=== PATIENT | female | born 1990 | race Caucasian/White ===

== ENCOUNTER → 2018-12-23 | Outpatient (CLI) | payer BC ==
[~2018-12-23] MED LIST: ALPR1TAB2 PO; DICL75TA PO; NORE1TAB PO
[2018-12-23] MEDS: GADOBUTROL 7.5 MMOL/7.5 ML VIAL IV ONE (14:27)
--- NOTE | 2018-12-23 14:54 | RAD ---
EXAM: Brain MRI with and without contrast. HISTORY: Headaches. Left vestibular schwannoma resection. TECHNIQUE: Multiplanar, multisequence magnetic resonance imaging of the brain was performed prior to and following the administration of 7 cc Gadavist intravenous contrast. COMPARISON: 07/13/2018 FINDINGS: There is no restricted diffusion to suggest acute or subacute infarction. There is no mass effect or midline shift. There is no hydrocephalus. No suspicious white matter lesion is seen. There are findings consistent with a prior left retrosigmoid craniotomy. There is a heterogeneous enhancing lesion within the left cerebellopontine angle which extends into the left internal auditory canal. This measures 10 mm anteroposteriorly by 13 mm transversely by 9 mm craniocaudally. The abnormal enhancement does not extend to the basal turn of the cochlea. The extracanalicular component measures 9 x 9 x 5 mm. This lesion abuts the proximal left trigeminal nerve complex and partially effaces the traversing left vestibulocochlear and facial nerves. The orbits are unremarkable. There are small maxillary sinus mucous retention cysts. There is a tiny amount of fluid within the residual left mastoid air cells. There are normal flow voids within the cerebral vessels. IMPRESSION: 1. Stable enhancing left cerebellopontine angle mass with slight extension into the internal auditory canal, consistent with a history of a left vestibular schwannoma. There are left retrosigmoid craniotomy changes due to prior lesion resection or partial resection. The size of this lesion is not significantly changed compared to the most recent comparison study, allowing for differences in imaging technique. 2. No acute intracranial finding. Electronically signed by: Kayley Bain MD (12/23/2018 2:51 PM) [facility]
== END | disposition home or self-care (01) ==
LOC: MRI 12:46
PROVIDERS: ATTEND Radiology Radiation Oncology
DX: J34.1 Cyst and mucocele of nose and nasal sinus (principal); D36.10 Benign neoplasm of peripheral nerves and autonomic nervous system, unspecified
CPT/HCPCS: 70553; A9585

== ENCOUNTER 2019-04-02 14:33 | Emergency (ER) | payer BC ==
[~2019-04-02] VITALS: Ht 160 cm; Wt 77.1 kg
[2019-04-02 14:37] VITALS: BP 117/62
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
== END 2019-04-02 15:23 | disposition left against medical advice (07) ==
LOC: ER 14:33
DX: S20.02XA Contusion of left breast, initial encounter (principal); S40.022A Contusion of left upper arm, initial encounter; R51 Headache; R42 Dizziness and giddiness; F41.9 Anxiety disorder, unspecified; F17.200 Nicotine dependence, unspecified, uncomplicated; G89.29 Other chronic pain; V43.53XA Car driver injured in collision with pick-up truck in traffic accident, initial encounter; Y93.89 Activity, other specified; Y92.410 Unspecified street and highway as the place of occurrence of the external cause; Y99.8 Other external cause status
CPT/HCPCS: 99281

== ENCOUNTER → 2019-05-19 | Outpatient (CLI) | payer BC ==
[~2019-05-19] MED LIST changes: +ESCITALOPRAM OX10 MG PO; +GABA300C18 PO; +GADOTERATE 7.5 MMOL/15ML VIAL. IVP ONE; +HYDR-2769 PO; +HYDR25TA PO; +METH-37 PO
--- NOTE | 2019-05-19 15:57 | KCIC ---
BRAIN WO/W CONTRAST History: Acoustic neuroma. History of left-sided resection and radiation. Headaches chronic. Technique: Multiplanar, multi sequential pre and postcontrast MR imaging was performed of the brain. Contrast: 15 mL Dotarem Comparison: December 23, 2018. CT March 29, 2019 Findings: No acute infarct. No intracranial hemorrhage. No mass effect. No hydrocephalus. Enhancing mass within the left cerebellopontine angle extending into the internal auditory canal measures 0.7 cm anterior posterior by 1.0 cm transverse by 0.8 cm craniocaudal (compared to 0.8 cm anterior posterior by 1.2 cm transverse by 0.9 cm canal caudal). There is unchanged mass effect on the left trigeminal nerve root entry zone. Imaged orbits are unremarkable. Small left posterior maxillary sinus mucous retention cyst. Postoperative changes left partial mastoidectomy. Mastoid air cells are clear. Impression: 1. Slightly decreased left vestibular schwannoma. Unchanged mass effect on the left trigeminal nerve root entry zone. Electronically signed by: Henri Addison DO (05/19/2019 3:54 PM) [id number]
== END | disposition home or self-care (01) ==
LOC: KCIC MRI 14:21
PROVIDERS: ATTEND Radiology Radiation Oncology
DX: D36.10 Benign neoplasm of peripheral nerves and autonomic nervous system, unspecified (principal); G93.9 Disorder of brain, unspecified; J34.1 Cyst and mucocele of nose and nasal sinus; R22.0 Localized swelling, mass and lump, head
CPT/HCPCS: 70553; A9575

== ENCOUNTER → 2019-05-25 | Outpatient (CLI) | payer BC ==
[~2019-05-25] MED LIST changes: -GADOTERATE 7.5 MMOL/15ML VIAL. IVP ONE
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
== END | disposition home or self-care (01) ==
LOC: KCIC US 13:30
PROVIDERS: ATTEND Nurse Practitioner Gerontology
DX: N64.89 Other specified disorders of breast (principal)
CPT/HCPCS: 76641

== ENCOUNTER → 2019-11-26 | Outpatient (CLI) | payer BC ==
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
== END | disposition home or self-care (01) ==
LOC: KCIC US 12:28
PROVIDERS: ATTEND Nurse Practitioner Gerontology
DX: N63.22 Unspecified lump in the left breast, upper inner quadrant (principal)
CPT/HCPCS: 76641

== ENCOUNTER → 2020-04-12 | Outpatient (CLI) | payer BC ==
[~2020-04-12] MED LIST changes: +FREM225S SQ; +GADOTERATE 5 MMOL/10ML VIAL. IVP ONE
--- NOTE | 2020-04-12 09:38 | KCIC ---
EXAMINATION: Magnetic resonance imaging (MRI) of the brain and brainstem with and without contrast with dedicated views of the Temporal Bones and Internal Auditory Canals (IACs) DATE: 04/12/2020 8:00 AM INDICATION: LEFT ACOUSTIC NEUROMA. Worsening migraines. Surgery for Left acoustic neuroma TECHNIQUE: Multiplanar, multisequence MR images were performed with and without contrast. Multiple T1 + T2 weighted images were obtained through temporal bone and IACs. 3D fiesta T2 weighted images were also obtained and reconstructed in coronal and sagittal planes. 15 cc of Dotarem contrast was given intravenously. COMPARISON: 05/19/2019. FINDINGS: Left cerebellopontine angle extra-axial enhancing mass extending into the IAC measures 1.0 x 0.6 x 0.8 cm (TV by AP by CC), which is unchanged from the prior exam when measured in the same fashion. 7 mm apical fluid cap. Unchanged mass effect on the root entry zone of the left trigeminal nerve. The cochlear forms are normal with normal fluid signal within cochlea. The semicircular canals are normal. No acute infarction. No acute or chronic hemorrhage. The ventricles are normal in size and position without hydrocephalus. The scalp and calvarium are normal. The pituitary and sella are normal. No Chiari malformation. The visualized upper cervical spine is normal. The visualized portions of the orbits and mastoids are normal. Tiny maxillary sinus mucus retention cysts. Normal flow voids in the distal internal carotid and basilar arteries indicate patency. IMPRESSION: Stable left vestibular schwannoma. Electronically signed by: Trace Warren MD (04/12/2020 9:35 AM) [id number]
== END | disposition home or self-care (01) ==
LOC: KCIC MRI 07:47
PROVIDERS: ATTEND Psychiatry & Neurology Neurology with Special Qualifications in Child Neurology
DX: D36.10 Benign neoplasm of peripheral nerves and autonomic nervous system, unspecified (principal); J34.1 Cyst and mucocele of nose and nasal sinus
CPT/HCPCS: 70553; A9575

== ENCOUNTER 2020-12-13 15:08 | Emergency (ER) | payer BC ==
[~2020-12-13] VITALS: Ht 160 cm; Wt 82.7 kg
[~2020-12-13 15:08] MED LIST changes: -GADOTERATE 5 MMOL/10ML VIAL. IVP ONE
[2020-12-13] MEDS ORDERED: IV NORMAL SALINE 1000ML BAG 1,000 ML IV ONE (16:15)
[2020-12-13] MEDS ORDERED: diphenhydrAMINE 50 MG/ML VIAL IVP ONE (16:15)
[2020-12-13] MEDS ORDERED: methylPREDNISolone SOD SUCC PF 125 MG/2 ML VIAL. IV ONE (16:15)
[2020-12-13] MEDS ORDERED: KETOROLAC 30 MG/ML VIAL. IVP ONE (16:15)
[2020-12-13] MEDS ORDERED: PROCHLORPERAZINE 10 MG/2 ML VIAL. IV ONE (16:15)
[2020-12-13 16:43] LABS: BASO # 0.1 x10^3/uL (0.0-0.2); BASO % 1 % (0-3); EOS % 0 % (0-3); HEMATOCRIT 47.1 % (36.0-47.0); LYMPH # 0.7 x10^3/uL (1.0-4.8); LYMPH % 8 % (24-48); MEAN CORPUSCULAR HEMOGLOBIN 31 pg (25-35); MEAN CORPUSCULAR HGB CONC 34 g/dL (31-37); MEAN CORPUSCULAR VOLUME 91 fL (79-100); MONO # 0.2 x10^3/uL (0.0-1.1); MONO % 2 % (0-9); NEUT # 7.6 x10^3/uL (1.8-7.7); NEUT % 89 % (31-73); PLATELET COUNT 303 x10^3/uL (140-400); RED CELL DISTRIBUTION WIDTH 12.4 % (11.5-14.5); WHITE BLOOD COUNT 8.5 x10^3/uL (4.0-11.0)
[2020-12-13 16:53] LABS: BILIRUBIN,URINE NEGATIVE (NEG); CLARITY,URINE CLEAR; COLOR,URINE YELLOW; NITRITE,URINE NEGATIVE (NEG); PH,URINE 7.5 (<5.0-8.0); PROTEIN,URINE NEGATIVE (NEG-TRACE)
[2020-12-13 16:53] LABS: CALCIUM 8.5 mg/dL (8.5-10.1); CREATININE 1.3 mg/dL (0.6-1.0); GFR 47.8; POTASSIUM 4.1 mmol/L (3.5-5.1)
[2020-12-13 17:00] LABS: BACTERIA,URINE 0 /HPF (0-FEW); BARBITURATES NEG (NEG); BENZODIAZEPINES POS (NEG); CANNABINOIDS NEG (NEG); COCAINE NEG (NEG); METHADONE NEG (NEG); OPIATES NEG (NEG); PHENCYCLIDINE NEG (NEG); RBC,URINE OCC /HPF (0-2); WBC,URINE OCC /HPF (0-4)
[2020-12-13 17:03] LABS: % LYMPHS 12 % (24-48); % MONOS 2 % (0-10); % SEGS 86 % (35-66); ALBUMIN 3.5 g/dL (3.4-5.0); MAGNESIUM 1.9 mg/dL (1.8-2.4); PLT ESTIMATE ADEQUATE (ADEQUATE); TOTAL BILIRUBIN 0.3 mg/dL (0.2-1.0); TOTAL PROTEIN 6.9 g/dL (6.4-8.2)
[2020-12-13 17:04] LABS: AMPHETAMINE/METHAMPHETAMINE NEG (NEG)
--- NOTE | 2020-12-13 19:04 | PHYS DOC ---
Past Medical History Past Medical History: Anxiety, Migraines, Other Additional Past Medical Histor: CHRONIC PAIN,NEUROPATHY (MARLENE NULL APRN) Past Surgical History: Other Additional Past Surgical Histo: BENIGN BRAIN TUMOR REMOVED/RADIATION,CSF LEAK REPAIRED (MARLENE NULL APRN) Smoking Status: Current Every Day Smoker Alcohol Use: Rarely Drug Use: None (MARLENE NULL APRN) General Adult EDM: Chief Complaint: HEADACHE HPI: HPI: Patient is a 30 year old female with history of anxiety, acoustic neuroma, migraine headaches who presents to the ED today complaining of a 10 out of 10 frontal head migraine headache described as throbbing and intermittent, symptoms since November 26, 2020. Also complaining of light sensitivity, denies any nausea vomiting. Patient states she has been seen at 4 different emergency rooms for her symptoms. She was seen at [facility] on Friday and discharged yesterday. She states they did a CAT scan of her head and lab work, she states they did not report any acute findings and she was sent home with a steroid pack and muscle relaxer. She states she would like to be admitted today. She states she has a scheduled MRI on Friday as well as a neurologist appointment next peter pritchett (MARLENE NULL APRN) Review of Systems: Review of Systems: Constitutional: Denies fever or chills. [] Eyes: Denies change in visual acuity. [] HENT: Denies nasal congestion or sore throat. [] Respiratory: Denies cough or shortness of breath. [] Cardiovascular: Denies chest pain or edema. [] GI: Denies abdominal pain, nausea, vomiting, bloody stools or diarrhea. [] : Denies dysuria. [] Musculoskeletal: Denies back pain or joint pain. [] Integument: Denies rash. [] Neurologic: Reports migraine headache, reports photosensitivity, focal weakness or sensory changes. [] Psychiatric: Denies depression or anxiety. [] (MARLENE NULL APRN) Heart Score: Risk Factors: Risk Factors: DM, Current or recent (<one month) smoker, HTN, HLP, family history of CAD, obesity. Risk Scores: Score 0 - 3: 2.5% MACE over next 6 weeks - Discharge Home Score 4 - 6: 20.3% MACE over next 6 weeks - Admit for Clinical Observation Score 7 - 10: 72.7% MACE over next 6 weeks - Early Invasive Strategies (MARLENE NULL [employer]) Current Medications: Current Medications Medications (Trade) Dose Ordered Sig/Maria Isabel Start Time Stop Time Status Last Admin Dose Admin Diphenhydramine HCl (Benadryl) 25 mg 1X ONCE 12/13/20 16:15 12/13/20 16:17 DC 12/13/20 16:58 25 MG Ketorolac Tromethamine (Toradol 30mg Vial) 30 mg 1X ONCE 12/13/20 16:15 12/13/20 16:17 DC 12/13/20 16:57 30 MG Methylprednisolone Sodium Succinate (SOLU-Medrol 125MG VIAL) 125 mg 1X ONCE 12/13/20 16:15 12/13/20 16:17 DC 12/13/20 17:00 125 MG Prochlorperazine Edisylate (Compazine) 10 mg 1X ONCE 12/13/20 16:15 12/13/20 16:17 DC 12/13/20 16:59 10 MG Sodium Chloride 1,000 ml @ 1,000 mls/hr 1X ONCE 12/13/20 16:15 12/13/20 17:14 DC 12/13/20 16:55 1,000 MLS/HR (MARLENE NULL [employer]) Allergies: Allergies: Allergies Coded Allergies Type Severity Reaction Last Updated Verified No Known Drug Allergies 08/12/18 No (MARLENE NULL [employer]) Physical Exam: PE: Constitutional: Well developed, well nourished, no acute distress, non-toxic appearance. [] HENT: Normocephalic, atraumatic, bilateral external ears normal, oropharynx moist, no oral exudates, nose normal. [] Eyes: PERRLA, EOMI, conjunctiva normal, no discharge. [] Neck: Normal range of motion, no tenderness, supple, no stridor. [] Cardiovascular:Heart rate regular rhythm, no murmur [] Lungs & Thorax: Bilateral breath sounds clear to auscultation [] Abdomen: Bowel sounds normal, soft, no tenderness, no masses, no pulsatile masses. [] Skin: Warm, dry, no erythema, no rash. [] Back: No tenderness, no CVA tenderness. [] Extremities: No tenderness, no cyanosis, no clubbing, ROM intact, no edema. [] Neurologic: Alert and oriented X 3, normal motor function, normal sensory function, no focal deficits noted. Cranial nerves II through XII intact Psychologic: Affect normal, judgement normal, mood normal. [] (MARLENE NULL APRN) Current Patient Data: Labs: Laboratory Tests Test 12/13/20 16:25 12/13/20 16:34 12/13/20 16:40 Urine Collection Type Unknown Urine Color Yellow Urine Clarity Clear Urine pH 7.5 (<5.0-8.0) Urine Specific [place] 1.015 (1.000-1.030) Urine Protein Negative mg/dL (NEG-TRACE) Urine Glucose (UA) Negative mg/dL (NEG) Urine Ketones (Stick) Negative mg/dL (NEG) Urine Blood Negative (NEG) Urine Nitrite Negative (NEG) Urine Bilirubin Negative (NEG) Urine Urobilinogen Dipstick 1.0 mg/dL (0.2 mg/dL) Urine Leukocyte Esterase Negative (NEG) Urine RBC Occ /HPF (0-2) Urine WBC Occ /HPF (0-4) Urine Squamous Epithelial Cells Occ /LPF Urine Bacteria 0 /HPF (0-FEW) Urine Opiates Screen Neg (NEG) Urine Methadone Screen Neg (NEG) Urine Barbiturates Neg (NEG) Urine Phencyclidine Screen Neg (NEG) Urine Amphetamine/Methamphetamine Neg (NEG) Urine Benzodiazepines Screen Pos (NEG) Urine Cocaine Screen Neg (NEG) Urine Cannabinoids Screen Neg (NEG) Urine Ethyl Alcohol Neg (NEG) White Blood Count 8.5 x10^3/uL (4.0-11.0) Red Blood Count 5.20 x10^6/uL (3.50-5.40) Hemoglobin 16.0 g/dL (12.0-15.5) H Hematocrit 47.1 % (36.0-47.0) H Mean Corpuscular Volume 91 fL (79-100) Mean Corpuscular Hemoglobin 31 pg (25-35) Mean Corpuscular Hemoglobin Concent 34 g/dL (31-37) Red Cell Distribution Width 12.4 % (11.5-14.5) Platelet Count 303 x10^3/uL (140-400) Neutrophils (%) (Auto) 89 % (31-73) H Lymphocytes (%) (Auto) 8 % (24-48) L Monocytes (%) (Auto) 2 % (0-9) Eosinophils (%) (Auto) 0 % (0-3) Basophils (%) (Auto) 1 % (0-3) Neutrophils # (Auto) 7.6 x10^3/uL (1.8-7.7) Lymphocytes # (Auto) 0.7 x10^3/uL (1.0-4.8) L Monocytes # (Auto) 0.2 x10^3/uL (0.0-1.1) Eosinophils # (Auto) 0.0 x10^3/uL (0.0-0.7) Basophils # (Auto) 0.1 x10^3/uL (0.0-0.2) Segmented Neutrophils % 86 % (35-66) H Lymphocytes % 12 % (24-48) L Monocytes % 2 % (0-10) Platelet Estimate Adequate (ADEQUATE) Sodium Level 139 mmol/L (136-145) Potassium Level 4.1 mmol/L (3.5-5.1) Chloride Level 104 mmol/L (98-107) Carbon Dioxide Level 20 mmol/L (21-32) L Anion Gap 15 (6-14) H Blood Urea Nitrogen 18 mg/dL (7-20) Creatinine 1.3 mg/dL (0.6-1.0) H Estimated GFR (Cockcroft-Gault) 47.8 BUN/Creatinine Ratio 14 (6-20) Glucose Level 156 mg/dL (70-99) H Calcium Level 8.5 mg/dL (8.5-10.1) Magnesium Level 1.9 mg/dL (1.8-2.4) Total Bilirubin 0.3 mg/dL (0.2-1.0) Aspartate Amino Transferase (AST) 21 U/L (15-37) Alanine Aminotransferase (ALT) 46 U/L (14-59) Alkaline Phosphatase 99 U/L (46-116) Total Protein 6.9 g/dL (6.4-8.2) Albumin 3.5 g/dL (3.4-5.0) Albumin/Globulin Ratio 1.0 (1.0-1.7) Ethyl Alcohol Level < 10 mg/dL (0-10) POC Urine HCG, Qualitative Hcg negative (Negative) Laboratory Tests 12/13/20 16:34 Laboratory Tests 12/13/20 16:34 Vital Signs: Vital Signs Date Time Temp Pulse Resp B/P (MAP) Pulse Ox O2 Delivery O2 Flow Rate FiO2 12/13/20 18:02 86 16 98 12/13/20 15:18 98.0 151/97 (115) Room Air 98.0 (MARLENE NULL APRN) EKG: EKG: [] (MARLENE NULL APRN) Radiology/Procedures: Radiology/Procedures: [] (MARLENE NULL APRN) Course & Med Decision Making: Course & Med Decision Making Pertinent Labs and Imaging studies reviewed. (See chart for details) This is a 30-year-old female patient presenting to the ED today complaining of a migraine headache since November 26, 2020. Patient reports being seen at 4 emergency rooms for this headache and being worked up. She was admitted at [facility] on Friday and discharged yesterday. She had a CAT scan which was negative for any acute findings. She has an MRI scheduled on Friday as well as appointment with her PCP on Friday and neurologist next week. She is requesting to be admitted Labs are negative for any acute findings. She was given Compazine Benadryl and Solu-Medrol and IV fluids. I spoke to Dr. Farmer who felt there is no acute reason for hospital admission. D/c to home. (MARLENE NULL APRN) Dragon Disclaimer: Dragon Disclaimer: This electronic medical record was generated, in whole or in part, using a voice recognition dictation system. (MARLENE NULL APRN) Departure Departure Impression: Primary Impression: Migraine headache Qualified Codes: G43.909 - Migraine, unspecified, not intractable, without status migrainosus Disposition: 01 DC HOME SELF CARE/HOMELESS Condition: STABLE Referrals: RUSTAM GAMBLE MD (PCP) follow up on Friday Patient Instructions: Migraine Headache, [id number] Additional Instructions: You were evaluated in the emergency room, please take the medicines you were prescribed by [facility] yesterday. Please follow-up with your primary care doctor, and neurologist as scheduled Attending Signature Attending Signature I have reviewed the PA/WHIPPER BEATER's note and plan of care. I was available for consultation as needed during the patient's visit in the emergency department. I agree with the clinical impression, plan, and disposition. (CARDONARUSTAM ROSE APRN Dec 13, 2020 19:04 RUSTAM CARDONA DO Dec 14, 2020 01:00
[2020-12-13 19:32] VITALS: BP 104/62
== END 2020-12-13 19:41 | disposition home or self-care (01) ==
LOC: ER 15:08
DX: G43.909 Migraine, unspecified, not intractable, without status migrainosus (principal); F17.200 Nicotine dependence, unspecified, uncomplicated; G89.29 Other chronic pain; Z98.890 Other specified postprocedural states
CPT/HCPCS: 36415; 80053; 80307; 81001; 81025; 83735; 85007; 85025; 96361; 96374; 96375; 99285; G0480; J0780; J1200; J1885; J2930; J7030